=== PATIENT | female | born 1945 | race Caucasian/White ===

== ENCOUNTER 2017-08-29 09:35 | Outpatient (CLI) | payer MEDICARE, OTHER ==
[2017-08-29 10:52] LABS: eGFR (African) > 60; eGFR (Non-African) > 60
== END 2017-08-29 09:36 ==
LOC: LAB 09:35
PROVIDERS: ATTEND Family Medicine
DX: E78.5 Hyperlipidemia, unspecified (principal); R73.9 Hyperglycemia, unspecified
CPT/HCPCS: 36415; 80053; 80061; 83036

== ENCOUNTER 2018-08-29 08:59 | Outpatient (CLI) | payer MEDICARE, OTHER ==
[2018-08-29 09:31] LABS: eGFR (Non-African) > 60
== END 2018-08-29 09:08 ==
LOC: LAB 08:59
PROVIDERS: ATTEND Family Medicine
DX: R73.9 Hyperglycemia, unspecified (principal); E78.5 Hyperlipidemia, unspecified
CPT/HCPCS: 36415; 80053; 80061; 83036

== ENCOUNTER 2019-06-11 09:29 | Outpatient (CLI) | payer MEDICARE, OTHER ==
[2019-06-11 10:28] LABS: A1C 5.6 % (<5.7)
[2019-06-11 10:38] LABS: HDL 46 mg/dL (>40); eGFR (Non-African) > 60
== END 2019-06-11 09:34 ==
LOC: LAB 09:29
PROVIDERS: ATTEND Family Medicine
DX: R73.9 Hyperglycemia, unspecified (principal); E78.5 Hyperlipidemia, unspecified
CPT/HCPCS: 36415; 80053; 80061; 83036